=== PATIENT | male | born 1985 | race Caucasian/White ===

== ENCOUNTER → 2022-10-22 | Outpatient (CLI) | payer OTHER ==
--- NOTE | 2022-10-22 09:15 | US ---
EXAMINATION TYPE: US abdomen complete DATE OF EXAM: 10/22/2022 COMPARISON: NONE CLINICAL INDICATION: Male, 37 years old with history of R79.89OTHER SPECIFIED ABNORMAL FINDINGS OF BL OOD C; Elevated LFT's TECHNIQUE: Multiple sonographic images of the abdomen are obtained. FINDINGS: EXAM MEASUREMENTS: Liver Length: 16.3 cm Gallbladder Wall: Surgically absent cm CBD: 0.3 cm Spleen: 11.5 cm Right Kidney: 10.1x6.1x5.6 cm Left Kidney: 11.1x5.7x4.9 cm Pancreas: Tail obscured by overlying bowel gas Liver: partially obscured by bowel and rib shadows Gallbladder: Surgically absent Evidence for sonographic Argueta's sign: No CBD: wnl Spleen: wnl Right Kidney: No hydronephrosis or masses seen Left Kidney: No hydronephrosis or masses seen Upper IVC: wnl Abd Aorta: wnl The liver is homogenous. The intrahepatic portion of the IVC and proximal abdominal aorta are within normal limits. Common bile duct is unremarkable. The visualized portions of the pancreas are homoge nous. The spleen is unremarkable. Kidneys are symmetric and free of hydronephrosis. No renal lesio ns are seen. IMPRESSION: No evidence for acute process.
== END | disposition home or self-care (01) ==
LOC: RADUSWWP 07:40
PROVIDERS: ATTEND Family Medicine
DX: R79.89 Other specified abnormal findings of blood chemistry (principal)
CPT/HCPCS: 76700